=== PATIENT | female | born 1985 | race Two or more races ===

== ENCOUNTER 2019-07-15 05:10 | Day surgery (SDC) | payer OTHER ==
[~2019-07-15 05:10] MED LIST: ORTHO TRI-CYCL1 EACH PO
[2019-07-15] MEDS ORDERED: PERCOCET 5-3251 EACH PO (09:00)
[2019-07-15] MEDS ORDERED: RECTICARE30 GM TOP (09:01)
== END 2019-07-15 13:00 | disposition home or self-care (01) ==
LOC: CIR.AMB 05:10
DX: K60.3 Anal fistula (principal)